=== PATIENT | female | born 1965 | race African-American/Black ===

== ENCOUNTER 2022-10-21 10:24 | Observation (INO) | payer OTHER, SELFPAY ==
[2022-10-21] VITALS (25 sets, daily range): BP systolic 115–157; BP diastolic 67–93; PULSE 79–89; RESP 12–20; TEMP 36.3–36.9; O2SAT 96–100; BMI 28.9
--- NOTE | ~2022-10-21 | CT_ITS ---
EXAMINATION: CT abdomen pelvis w con DATE: 10/21/2022 13:52 INDICATION: Nonlocalized abdominal pain TECHNIQUE: Computed tomography (CT) of the abdomen and pelvis was performed with 100 cc Omnipaque 350 intravenous contrast. The dose-length product was 1215.46 mGy-cm. Automated exposure control and iterative reconstruction technique were employed. COMPARISON: None. FINDINGS: Lung bases are unremarkable. Heart size normal. No significant pleural or pericardial effus ion. There is a gastric tube in expected position. There is abnormal thickening of the descending col on, sigmoid colon and rectum, Consistent with colitis. No obstruction. There are small locules of sof t tissue and gas in the anterior abdominal wall, consistent with subcutaneous injections. There is tr charity fluid surrounding the liver. The liver, spleen, pancreas, adrenal glands and right kidney are unremarkable. There is a 3 mm nonobs tructing left renal stone. Gallbladder is present. No free air. There is atherosclerosis of the aorta without aneurysm. No lymphadenopathy. Mild lumbar and lower thoracic spondylosis. Osteopenia. IMPRESSION: 1. Long segment of diffusely thickened colon including the descending colon, sigmoid colon and rectum , consistent with colitis, most likely infectious or inflammatory. Reviewed, dictated and finalized at location A. IMPRESSION: 1. Long segment of diffusely thickened colon including the descending colon, si gmoid colon and rectum, consistent with colitis, most likely infectious or infl ammatory.
--- NOTE | ~2022-10-21 | XR_ITS ---
MODIFIED ESOPHAGRAM HISTORY: CVA TECHNIQUE: Modified barium esophagram was performed by speech pathologist under radiologist fluorosco pic guidance. This was recorded on tape. The exam was reviewed on 10/22/2022 12:05 CDT. Fluoroscopy time is 0.8 minutes. 2 fluoroscopic images. FINDINGS: Lateral projection of the cervical spine demonstrates normal cervical alignment. Ventral osteophytes are present at C2-3, C4-5 and C5-6.. There is normal swallowing function without evidence for aspiration or penetration. There is residue in the vallecula and piriform sinus. IMPRESSION: 1: Normal swallowing function without laryngeal penetration or aspiration. 2: Please refer to speech pathologist report for additional detail. Reviewed, dictated and finalized at location A.
[2022-10-21 10:59] LABS: Basophils Percent Auto 0.2 % (0.2-1.2); Hematocrit 39.6 % (37.0-47.0); Hemoglobin 12.6 g/dL (12.0-15.0); Immature Granulocyte Absolute 0.18 K/mm3 (0.00-0.031); Immature Granulocyte Percent A 0.9 % (0-0.5); Lymphocytes Absolute Auto 1.55 K/mm3 (0.9-3.2); Mean Corpuscular HGB Conc 31.8 g/dl (32-36); Mean Corpuscular Hemoglobin 28.5 pg (26-34); Mean Corpuscular Volume 89.6 fl (80-100); Monocytes Absolute Auto 0.8 K/mm3 (0.1-0.6); Monocytes Percent Auto 4.1 % (2.6-8.5); Neutrophils Absolute Auto 16.8 K/mm3 (1.3-6.7); Neutrophils Percent Auto 86.8 % (45.5-73.1); Platelet Count Result 244 k/mm3 (150-375); Red Blood Count 4.42 M/mm3 (4.2-5.4); Red Cell Distribution Width 14.2 % (11.5-14.5); White Blood Count 19.3 K/mm3 (4.5-10.0)
[2022-10-21 11:09] LABS: Alanine Aminotransferase 36 U/L (6-35); Albumin Level 3.9 g/dL (3.5-5.1); Alkaline Phosphatase 82 U/L (38-126); Anion Gap 6 mmol/L (8-16); Aspartate Amino Transferase 27 U/L (14-36); Bilirubin,Total 0.5 mg/dL (0.2-1.3); Blood Urea Nitrogen 21 mg/dL (7-17); Calcium 10.7 mg/dL (8.4-10.2); Carbon Dioxide 34 mmol/L (22-30); Chloride 99 mmol/L (98-107); Estimated CRCL calculation 86 ml/min; Estimated Glomerular Filt Rate > 60; Glucose 163 mg/dL (65-110); Potassium 4.2 mmol/L (3.4-5.0); Sodium 139 mmol/L (137-145)
[2022-10-21 11:10] LABS: INR 1.1; Prothrombin Time 14.7 Seconds (11.1-14.7)
[2022-10-21 11:11] LABS: Partial Thromboplastin Time 33.1 SECONDS (22.3-36.8)
[2022-10-21 11:34] LABS: Appearance Urine Clear (Clear); Bacteria Urine None Seen /hpf; Bilirubin Urine Negative (Negative); Blood Urine Negative (Negative); Color Urine Dark Yellow (Yellow); Glucose Urine UA Negative (Negative); Ketones Urine Negative (Negative); Leukocyte Esterase Ur Trace LEU/UL (Negative); Nitrate Urine Negative (Negative); Protein Urine 3+ mg/dL (Negative); RBC Urine 0-2 /hpf (0-2); Squamous Epithelial Cell Urine Occasional /hpf (Few); Urobilinogen Urine 0.2 mg/dL (<2.0); WBC Urine 0-5 /hpf; pH Urine 5.5 (5.0-9.0)
[2022-10-21 11:41] LABS: Add Urine Microscopic? YES
--- NOTE | 2022-10-21 13:14 | ED.GENADULT ---
HPI - General Adult General Chief complaint: Unspecified Stated complaint: vag bld Time Seen by Provider: 10/21/22 10:27 History of Present Illness HPI narrative: Patient is a 56-year-old female that is chronically debilitated from a CVA may have a vaginal bleeding. [facility] staff change her diaper today and hours blood in it that was described by EMS and subsequently menstrual flow. Patient is not on blood thinner. No additional history provided. Related Data Home Medications Medication Instructions Recorded Confirmed acetaminophen 325 mg tablet 650 mg feeding tube Q4H PRN Pain 10/21/22 10/21/22 albuterol sulfate 90 mcg/actuation 2 puff inhalation Q4H PRN sob 10/21/22 10/21/22 aerosol inhaler amlodipine 10 mg tablet 10 mg feeding tube DAILY 10/21/22 10/21/22 aspirin 81 mg tablet,delayed 81 mg feeding tube DAILY 10/21/22 10/21/22 release (Adult Low Dose Aspirin) atorvastatin 80 mg tablet 80 mg feeding tube DAILY 10/21/22 10/21/22 bisacodyl 10 mg rectal suppository 10 mg RECTAL DAILY PRN Constipation 10/21/22 10/21/22 carvedilol 6.25 mg tablet 6.25 mg feeding tube BID 10/21/22 10/21/22 cholecalciferol (vitamin D3) 25 25 mcg feeding tube DAILY 10/21/22 10/21/22 mcg (1,000 unit) tablet clopidogrel 75 mg tablet 75 mg feeding tube DAILY 10/21/22 10/21/22 fluoxetine 20 mg capsule 20 mg feeding tube DAILY 10/21/22 10/21/22 furosemide 20 mg tablet 10 mg feeding tube DAILY 10/21/22 10/21/22 glucagon 1 mg solution for 1 mg subcut PRN PRN Hypoglycemia 10/21/22 10/21/22 injection (Glucagon Emergency Kit) heparin (porcine) 5,000 unit/mL 5,000 unit subcut Q8H 10/21/22 10/21/22 injection solution insulin glargine 100 unit/mL (3 16 unit subcut DAILY 10/21/22 10/21/22 mL) subcutaneous pen (Lantus Solostar U-100 Insulin) insulin lispro 100 unit/mL 8 unit subcut AC 10/21/22 10/21/22 subcutaneous half-unit pen (Humalog Edwin KwikPen (U-100)) lisinopril 40 mg tablet 40 mg feeding tube DAILY 10/21/22 10/21/22 magnesium citrate 300 ml feeding tube DAILY PRN 10/21/22 10/21/22 Constipation magnesium hydroxide 400 mg/5 mL 30 ml feeding tube HS PRN 10/21/22 10/21/22 oral suspension (Milk of Magnesia) Constipation memantine 10 mg tablet 10 mg feeding tube BID 10/21/22 10/21/22 methylphenidate HCl 10 mg tablet 10 mg feeding tube BID 10/21/22 10/21/22 ondansetron HCl 4 mg tablet 4 mg feeding tube Q6H PRN Nausea 10/21/22 10/21/22 And Vomiting pen needle,diabetic dual safty 30 10/21/22 10/21/22 gauge x 3/16 (BD AutoShield Duo Pen Needle) sennosides 8.6 mg-docusate sodium 1 tab-cap PO BID PRN Constipation 10/21/22 10/21/22 50 mg capsule sodium phosphates 19 gram-7 197 ml RECTAL PRN PRN Constipation 10/21/22 10/21/22 gram/118 mL enema (Fleet Enema) Allergies Allergy/AdvReac Type Severity Reaction Status Date / Time Latex, Natural Rubber Allergy Unknown Verified 10/21/22 10:41 Pork/Porcine Containing Allergy Unknown Verified 10/21/22 10:41 Products Review of Systems Review of Systems: ROS unobtainable: Yes unobtainable due to medical condition PMFSH Past Medical History Medical History (Updated 10/21/22 @ 17:50 by Kvng Mcgovern MD) CVA (cerebral vascular accident) Diabetes Gastrostomy tube in place Hypertension Exam Narrative: GENERAL: Chronically-appearing, well-nourished, and in no acute distress. HEAD: Normocephalic, atraumatic. ENT: Mucous membranes moist. NECK: Supple. CHEST: Clear to auscultation. No respiratory distress. HEART: Regular rate and rhythm. Normal peripheral pulses. ABDOMEN: Soft, nontender, nondistended, well-appearing G-tube site in left upper quadrant. : Normal external genitalia. Vaginal exam with moderate amount of pooling yellow discharge. Cervix normal appearance however does bleed with touch with the speculum. Cervix closed. No vaginal bleeding. EXTREMITIES: Chronic left-sided weakness. SKIN: Warm, dry, no rash. NEURO: Awake and alert, was not an
--- NOTE | 2022-10-21 18:17 | ED.GENADULT ---
HPI - General Adult General Chief complaint: Unspecified Stated complaint: vag bld Time Seen by Provider: 10/21/22 10:27 Related Data Home Medications Medication Instructions Recorded Confirmed acetaminophen 325 mg tablet 650 mg feeding tube Q4H PRN Pain 10/21/22 10/21/22 albuterol sulfate 90 mcg/actuation 2 puff inhalation Q4H PRN sob 10/21/22 10/21/22 aerosol inhaler amlodipine 10 mg tablet 10 mg feeding tube DAILY 10/21/22 10/21/22 aspirin 81 mg tablet,delayed 81 mg feeding tube DAILY 10/21/22 10/21/22 release (Adult Low Dose Aspirin) atorvastatin 80 mg tablet 80 mg feeding tube DAILY 10/21/22 10/21/22 bisacodyl 10 mg rectal suppository 10 mg RECTAL DAILY PRN Constipation 10/21/22 10/21/22 carvedilol 6.25 mg tablet 6.25 mg feeding tube BID 10/21/22 10/21/22 cholecalciferol (vitamin D3) 25 25 mcg feeding tube DAILY 10/21/22 10/21/22 mcg (1,000 unit) tablet clopidogrel 75 mg tablet 75 mg feeding tube DAILY 10/21/22 10/21/22 fluoxetine 20 mg capsule 20 mg feeding tube DAILY 10/21/22 10/21/22 furosemide 20 mg tablet 10 mg feeding tube DAILY 10/21/22 10/21/22 glucagon 1 mg solution for 1 mg subcut PRN PRN Hypoglycemia 10/21/22 10/21/22 injection (Glucagon Emergency Kit) heparin (porcine) 5,000 unit/mL 5,000 unit subcut Q8H 10/21/22 10/21/22 injection solution insulin glargine 100 unit/mL (3 16 unit subcut DAILY 10/21/22 10/21/22 mL) subcutaneous pen (Lantus Solostar U-100 Insulin) insulin lispro 100 unit/mL 8 unit subcut AC 10/21/22 10/21/22 subcutaneous half-unit pen (Humalog Edwin KwikPen (U-100)) lisinopril 40 mg tablet 40 mg feeding tube DAILY 10/21/22 10/21/22 magnesium citrate 300 ml feeding tube DAILY PRN 10/21/22 10/21/22 Constipation magnesium hydroxide 400 mg/5 mL 30 ml feeding tube HS PRN 10/21/22 10/21/22 oral suspension (Milk of Magnesia) Constipation memantine 10 mg tablet 10 mg feeding tube BID 10/21/22 10/21/22 methylphenidate HCl 10 mg tablet 10 mg feeding tube BID 10/21/22 10/21/22 ondansetron HCl 4 mg tablet 4 mg feeding tube Q6H PRN Nausea 10/21/22 10/21/22 And Vomiting pen needle,diabetic dual safty 30 10/21/22 10/21/22 gauge x 3/16 (BD AutoShield Duo Pen Needle) sennosides 8.6 mg-docusate sodium 1 tab-cap PO BID PRN Constipation 10/21/22 10/21/22 50 mg capsule sodium phosphates 19 gram-7 197 ml RECTAL PRN PRN Constipation 10/21/22 10/21/22 gram/118 mL enema (Fleet Enema) Allergies Allergy/AdvReac Type Severity Reaction Status Date / Time Latex, Natural Rubber Allergy Unknown Verified 10/21/22 10:41 Pork/Porcine Containing Allergy Unknown Verified 10/21/22 10:41 Products PMFSH Past Medical History Medical History (Updated 10/21/22 @ 17:50 by Kvng Mcgovern MD) CVA (cerebral vascular accident) Diabetes Gastrostomy tube in place Hypertension Social History Social History Smoking status: Unknown if ever smoked Spiritual care concerns: No Course Vital Signs Vital signs: Vital Signs Temperature 36.9 C 10/21/22 10:29 Pulse Rate 83 10/21/22 10:29 Respiratory Rate 18 10/21/22 10:29 Blood Pressure 155/81 H 10/21/22 10:29 Pulse Oximetry 99 10/21/22 10:29 Oxygen Delivery Room Air 10/21/22 10:29 Temperature 36.9 C 10/21/22 10:29 Pulse Rate 89 10/21/22 16:26 Respiratory Rate 18 10/21/22 16:26 Blood Pressure 115/75 10/21/22 16:26 Pulse Oximetry 98 10/21/22 16:26 Oxygen Delivery Room Air 10/21/22 17:54 Medical Decision Making Vital Signs Vital Signs: Vital Signs Temperature 36.9 C 10/21/22 10:29 Pulse Rate 83 10/21/22 10:29 Respiratory Rate 18 10/21/22 10:29 Blood Pressure 155/81 H 10/21/22 10:29 Pulse Oximetry 99 10/21/22 10:29 Oxygen Delivery Room Air 10/21/22 10:29 Temperature 36.9 C 10/21/22 10:29 Pulse Rate 89 10/21/22 16:26 Respiratory Rate 18 10/21/22 16:26 Blood Pressure 115/75 10/21/22 16:26 Pulse Oximetry 98 10/21/22 16:26 Oxygen
[2022-10-21] MEDS: metroNIDAZOLE 500 MG/ISO 100ML 500 MG/100 ML BAG 100 MG IVPB ×2 (18:25→21:58)
--- NOTE | 2022-10-21 23:51 | PM.IMHP ---
H&P: HPI History of Present Illness Date/Time: 10/21/22 23:51 Chief Complaint: bloody discharge Narrative: this is a 56-year-old female patient who resides at [facility] [place]. The patient has had a stroke around Easter time. She is nonverbal and flaccid her right upper and right lower extremity. The skilled nursing staff changed her diaper and found a bloody discharge. After reviewing her skilled nursing meds the patient apparently is on heparin every 8 hours. Her white count was noted to be 19.3. The patient is not able to answer any questions. I was not able to get a hold of anybody at the skilled nursing. However I did speak with her daughter who is the durable power workers compensation defense attorney for healthcare. Her blood sugar was noted to be 163 and calcium 10.7. A vaginal exam was performed. According to the ER note No evidence of vaginal bleeding on exam however with speculum was inserted there was some slight bleeding noted from the cervix due to irritation.? There was moderate discharge.? Trichomonas testing negative.? Patient felt to have bacterial vaginosis tachypneic leaving some blood in her diaper.? However due to elevated white blood cell count CT scan will be performed for anything else that may be going on within the abdomen pelvis. abdominal pelvis CT was read as a follow-upLong segment of diffusely thickened colon including the descending colon, sigmoid colon and rectum, consistent with colitis, most likely infectious or inflammatory. the patient was started on Rocephin and Flagyl. The patient is being admitted to observation status on the date of service of 10/21/2022. Review of Systems Review of Systems: All systems reviewed & are unremarkable except as noted in HPI and below Constitutional: Constitutional: Reports as per HPI and Reports no additional constitutional complaints Eyes: Eyes: Reports as per HPI and Reports no additional eye complaints ENT: Reports system reviewed and no additional complaints, except as documented and Reports Normal hearing present Cardiovascular: Cardiovascular: Reports no additional cardiovascular complaints Respiratory: Respiratory: Reports no additional respiratory complaints and Reports no additional respiratory complaints Gastrointestinal: Gastrointestinal: Reports as per HPI and Reports no additional gastrointestinal complaints Musculoskeletal: Musculoskeletal: Reports no additional musculoskeletal complaints Integumentary/Breasts: Skin/Breast: Reports system reviewed and no additional complaints, except as docu and Reports as per HPI Neurologic: Reports system reviewed and no additional complaints, except as documented, Reports as per HPI and Reports Normal hearing present Psychiatric: Psychiatric: Reports no additional psychiatric complaints and Reports as per HPI Endocrine: Endocrine: Reports no additional endocrine complaints Hematologic/Lymphatic: Hematologic/Lymphatic: Reports no additional hematologic/lymphatic complaints Allergic/Immunologic: Allergic/Immunologic: Reports no additional allergic/immunologic complaints [facility] Past Medical History Medical History (Updated 10/22/22 @ 00:04 by Maria Antonia Young NP) CVA (cerebral vascular accident) Depression with anxiety Diabetes Gastrostomy tube in place Hypertension Surgical History Surgical History (Updated 10/22/22 @ 00:04 by Maria Antonia Young NP) H/O section Family History Family History (Updated 10/22/22 @ 00:04 by Maria Antonia Young NP) Other Diabetes mellitus Hypertension Social History Social History (Updated 10/22/22 @ 00:05 by Maria Antonia Young NP) Social History: the patient is single and has 7 children. She is currently residing at [facility]. Her daughter Connie senior is her durable power workers compensation defense attorney for healthcare. Code status full code Smoking status: Unknown if ever smoked Spiritual care concerns: No Meds Home Medications and Allergies
[2022-10-22 01:54] LABS: Hemoglobin 10.4 g/dL (12.0-15.0)
[2022-10-22] MEDS: SODIUM CHLORIDE 0.9% IV 1,000 ML 100 ML IV CONT (02:45)
[2022-10-22 05:22] VITALS: BP 139/72; PULSE 88; RESP 14; TEMP 36.2; O2SAT 99
[2022-10-22] MEDS: metroNIDAZOLE 500 MG/ISO 100ML 500 MG/100 ML BAG 100 MG IVPB ×3 (05:48→21:16)
[2022-10-22 06:59] LABS: Basophils Percent Auto 0.2 % (0.2-1.2); Eosinophils Percent Auto 0.1 % (0-4.4); Hematocrit 32.5 % (37.0-47.0); Immature Granulocyte Absolute 0.19 K/mm3 (0.00-0.031); Immature Granulocyte Percent A 1.1 % (0-0.5); Lymphocytes Percent Auto 12.6 % (18.3-44.2); Mean Corpuscular HGB Conc 30.8 g/dl (32-36); Mean Corpuscular Hemoglobin 27.9 pg (26-34); Mean Corpuscular Volume 90.5 fl (80-100); Mean Platelet Volume 11.1 fl (7.4-10.4); Monocytes Percent Auto 5.7 % (2.6-8.5); Neutrophils Absolute Auto 13.3 K/mm3 (1.3-6.7); Neutrophils Percent Auto 80.3 % (45.5-73.1); Platelet Count Result 188 k/mm3 (150-375); Red Blood Count 3.59 M/mm3 (4.2-5.4); Red Cell Distribution Width 14.1 % (11.5-14.5); White Blood Count 16.6 K/mm3 (4.5-10.0)
[2022-10-22 07:11] LABS: Alanine Aminotransferase 24 U/L (6-35); Albumin Level 3.3 g/dL (3.5-5.1); Alkaline Phosphatase 78 U/L (38-126); Anion Gap 1 mmol/L (8-16); Aspartate Amino Transferase 20 U/L (14-36); Bilirubin,Total 0.5 mg/dL (0.2-1.3); Blood Urea Nitrogen 18 mg/dL (7-17); Calcium 9.8 mg/dL (8.4-10.2); Carbon Dioxide 34 mmol/L (22-30); Chloride 102 mmol/L (98-107); Estimated CRCL calculation 93 ml/min; Estimated Glomerular Filt Rate > 60; Glucose 132 mg/dL (65-110); Lactate Dehydrogenase 129 U/L (120-246); Potassium 3.4 mmol/L (3.4-5.0); Sodium 137 mmol/L (137-145)
[2022-10-22 07:39] LABS: Thyroid Stimulating Hormone Reflex 0.431 uIU/mL (0.465-4.68)
[2022-10-22 08:20] LABS: Glucose Point of Care 150 mg/dl (65-105)
[2022-10-22 08:20] LABS: Free T4 Free Thyroxine Reflex 1.53 ng/dL (0.78-2.19)
[2022-10-22] MEDS: PANTOPRAZOLE SODIUM IV 40 MG VIAL IV PUSH ×2 (08:37→20:46)
[2022-10-22] MEDS: amLODIPine BESYLATE 5 MG TABLET 10 MG FEED TUBE (08:40)
[2022-10-22] MEDS: methylPHENIDATE HCL (*CRX) 10 MG TABLET FEED TUBE ×2 (08:40→16:49)
[2022-10-22] MEDS: FLUoxetine HCL 20 MG CAPSULE FEED TUBE (08:40)
[2022-10-22] MEDS: CHOLECALCIFEROL 1,000 UNITS TABLET 1000 UNITS FEED TUBE (08:40)
[2022-10-22] MEDS: ATORVASTATIN 40 MG TABLET 80 MG FEED TUBE (08:40)
[2022-10-22] MEDS: MEMANTINE 10 MG TABLET FEED TUBE ×2 (08:40→20:46)
[2022-10-22] MEDS: lisinopriL 20 MG TABLET 40 MG FEED TUBE (08:41)
[2022-10-22] MEDS: FUROSEMIDE 10 MG TABLET FEED TUBE (08:41)
[2022-10-22] MEDS: carvediloL 6.25 MG TABLET FEED TUBE ×2 (08:41→20:51)
[2022-10-22] MEDS: CLOPIDOGREL BISULFATE 75 MG TABLET FEED TUBE (08:41)
[2022-10-22 09:50] LABS: Total Triiodothyronine (T3) 0.91 NG/ML (0.97-1.69)
[2022-10-22 11:20] LABS: Hemoglobin A1C 6.6 % (<5.7)
[2022-10-22 11:51] LABS: Glucose Point of Care 160 mg/dl (65-105)
--- NOTE | 2022-10-22 12:22 | PM.IMPN ---
Progress Note: A&P Assessment and Plan (1) Colitis: Code(s): K52.9 - Noninfective gastroenteritis and colitis, unspecified Status: Acute Assessment and Plan: Patient brought in from [place] for blood in her diaper. CT scan showing long segment of diffusely thickened colon including the descending colon, sigmoid colon and rectum consistent with colitis. Most likely infectious or inflammatory. WBC 19K. No diarrhea reported. She was started on Rocephin and Flagyl. GI consulted. Stool guaiac ordered. Stools studies if she develops diarrhea. The patient appears to be on heparin at the intermediate. Heparin has been placed on hold. Continue IV abx. Follow WBC (2) Bacterial vaginosis: Code(s): N76.0 - Acute vaginitis; B96.89 - Other specified bacterial agents as the cause of diseases classified elsewhere Status: Acute Assessment and Plan: Patient with blood in her diaper. UA was negative for blood. CT scan does show colitis. A vaginal exam was performed in the ED showing no evidence of vaginal bleeding but some slight bleeding noted from the cervix due to irritation.? There was moderate discharge.? Trichomonas testing negative.?[place] patient has bacterial vaginosis. UPT was negative. GC/Chlym pending. Continue Flagyl (3) Dysphagia: Code(s): R13.10 - Dysphagia, unspecified Status: Acute Assessment and Plan: Patient with dysphagia after her CVA. Dtr stated to other providers that the patient has been taking oral medications crushed in soft foods. RN states love is on a pureed diet at the intermediate. According to the daughter, the patient is supposed to have her G-tube removed. MBS study here showed patient can safely be started on oral feedings. Therapist felt resuming pureed diet would be fine. Resume pureed diet. Aspiration precautions (4) Diabetes: Code(s): E11.9 - Type 2 diabetes mellitus without complications Status: Acute Assessment and Plan: A1c 6.6. The patient's blood glucose was reviewed on 10/22 Glucose remains well controlled. Continue AccuCheks covering with sliding scale. Hypoglycemia protocol available as needed. Continue to monitor. Resume Lantus since diet resumed (5) Hypertension: Code(s): I10 - Essential (primary) hypertension Status: Acute Assessment and Plan: Patient's blood pressure was reviewed on 10/22 Blood pressure remains well controlled. Will continue to monitor (6) CVA (cerebral vascular accident): Code(s): I63.9 - Cerebral infarction, unspecified Status: Acute Assessment and Plan: The patient had a CVA at Easter time. She has residual aphasia, dysphagia and right sided paralysis. Continue Plavix and aspirin. Continue atorvastatin (7) Depression with anxiety: Code(s): F41.8 - Other specified anxiety disorders Status: Acute Assessment and Plan: Mood stable. Continue with Prozac, Ritalin and Namenda Plan DVT prophylaxis - SCDs Code status - Full Subjective Date/time seen: 10/22/22 12:22 Interval history: 56yo female with hx of CVA, dysphagia and aphasia here after being found with blood in her diaper. Patient is alert but aphasic and unable to provide hisotry. Review of Systems Review of Systems: ROS unobtainable: Yes unobtainable due to medical condition Exam Narrative: AF 97.2 139/72 88 14 99% ra Gen - NARD Chest - clear to quiet respirations. nml RR CV - RRR S1/S2 Abd - Soft, ND, no apparent pain. GTube secured. Ext - No pedal edema Neuro - Alert, nonverbal. Right flaccid. Psych - Nml mood and affect Skin - Warm and dry Objective Data Vital Signs Vital Signs: Vital Signs - 24 hr 10/21/22 12:27 10/21/22 12:31 10/21/22 12:32 Temperature Pulse Rate 82 82 85 Respiratory Rate 18 18 16 Blood Pressure 133/79 124/93 H Pulse Oximetry 100 100 100 Oxygen Delivery 10/21/22 12:45 10/21/22 13:16 06
[2022-10-22 12:33] LABS: Hematocrit 32.2 % (37.0-47.0); Hemoglobin 10.1 g/dL (12.0-15.0)
--- NOTE | 2022-10-22 12:44 | PCSTNOTE ---
Modified barium swallow study (MBSS) completed. Trials of thin liquid, moderately thick liquid, and pureed consistency barium contrast were given. There was trace residue in the pyriform sinuses and valleculae, but no penetration or aspiration. Swallowing onset was timely and swallowing function efficient. Recommendations: Resume previous diet texture (pureed) with thin liquids. Swallowing precautions placed in chart. Pills may be given by spoon in applesauce or other pureed food. No further speech therapy is recommended. Thank you for the referral of this patient.
[2022-10-22 14:00] VITALS: BP 139/66; PULSE 88; RESP 14; TEMP 35.8; O2SAT 100
[2022-10-22 16:33] LABS: Glucose Point of Care 205 mg/dl (65-105)
[2022-10-22] MEDS: INSULIN ASPART (*BKC) 100 UNITS/ML SUB-Q (16:48)
[2022-10-22 18:16] LABS: Hematocrit 30.2 % (37.0-47.0); Hemoglobin 9.6 g/dL (12.0-15.0)
--- NOTE | 2022-10-22 18:44 | WPDGICN ---
Assessment and Plan Assessment and plan (1) Colitis: Code(s): K52.9 - Noninfective gastroenteritis and colitis, unspecified Status: Acute Assessment and Plan: could be infectious vs ischemic on abx continue to monitor repeat cbc and also get lactic acid (2) Rectal bleeding: Code(s): K62.5 - Hemorrhage of anus and rectum Status: Acute Assessment and Plan: probably from colitis defer colonoscopy in setting of active colitis medical treatment for now, probably in few more weeks after resolution of colitis (3) Leukocytosis: Code(s): D72.829 - Elevated white blood cell count, unspecified Status: Acute Assessment and Plan: monitor (4) CVA (cerebral vascular accident): Code(s): I63.9 - Cerebral infarction, unspecified Status: Acute Assessment and Plan: aphasia and sequela (5) Diabetes: Code(s): E11.9 - Type 2 diabetes mellitus without complications Status: Acute (6) Hypertension: Code(s): I10 - Essential (primary) hypertension Status: Acute GI Consult Note Consult date/time: 10/22/22 18:44 Reason for consult: colitis HPI: Eda Lovell is a 56 year old female with h/o HTN, CVA about 2 months ago then she went to local rehab. She is nonverbal and flaccid her right upper and right lower extremity.? She was brought here after [facility] staff changed her diaper and found? bloody discharge.?Her white count was noted to be 19.3. CT scan showed long segment of diffusely thickened colon including the descending colon, sigmoid colon and rectum, consistent with colitis,?Started on antibiotics. History is obtained from records and daughter who is at bedside, she can not tell me if she ever had colonoscopy. Review of Systems Review of Systems: ROS unobtainable: Yes unobtainable due to mental status PMFSH Past Medical History Medical History (Updated 10/22/22 @ 18:47 by J Carlos Medina MD) CVA (cerebral vascular accident) Depression with anxiety Diabetes Dysphagia Gastrostomy tube in place Hypertension Leukocytosis Rectal bleeding Surgical History Surgical History (Updated 10/22/22 @ 00:04 by Maria Antonia Young NP) H/O section Family History Family History (Updated 10/22/22 @ 00:04 by Maria Antonia Young NP) Other Diabetes mellitus Hypertension Social History Social History (Updated 10/22/22 @ 00:05 by Maria Antonia Young NP) Social History: the patient is single and has 7 children. She is currently residing at [facility]. Her daughter Connie senior is her durable power sports attorney for healthcare. Code status full code Smoking status: Unknown if ever smoked Spiritual care concerns: No Meds Home Medications and Allergies Home Medications Medication Instructions Recorded Confirmed Type acetaminophen 325 mg tablet 650 mg feeding tube Q4H PRN Pain 10/21/22 10/21/22 History albuterol sulfate 90 mcg/actuation 2 puff inhalation Q4H PRN sob 10/21/22 10/21/22 History aerosol inhaler amlodipine 10 mg tablet 10 mg feeding tube DAILY 10/21/22 10/21/22 History aspirin 81 mg tablet,delayed 81 mg feeding tube DAILY 10/21/22 10/21/22 History release (Adult Low Dose Aspirin) atorvastatin 80 mg tablet 80 mg feeding tube DAILY 10/21/22 10/21/22 History bisacodyl 10 mg rectal suppository 10 mg RECTAL DAILY PRN Constipation 10/21/22 10/21/22 History carvedilol 6.25 mg tablet 6.25 mg feeding tube BID 10/21/22 10/21/22 History cholecalciferol (vitamin D3) 25 25 mcg feeding tube DAILY 10/21/22 10/21/22 History mcg (1,000 unit) tablet clopidogrel 75 mg tablet 75 mg feeding tube DAILY 10/21/22 10/21/22 History fluoxetine 20 mg capsule 20 mg feeding tube DAILY 10/21/22 10/21/22 History furosemide 20 mg tablet 10 mg feeding tube DAILY 10/21/22 10/21/22 History glucagon 1 mg solution for 1 mg subcut PRN PRN Hypoglycemia 10/21/22 10/21/22 History injection (Glucagon E
[2022-10-22 20:51] VITALS: PULSE 74
[2022-10-22 21:02] LABS: Glucose Point of Care 172 mg/dl (65-105)
[2022-10-22 21:12] VITALS: BP 112/58; PULSE 79; RESP 14; TEMP 36.3; O2SAT 100
[2022-10-22] MEDS: ACETAMINOPHEN 325 MG TABLET 650 MG PO (23:27)
[2022-10-23] MEDS: metroNIDAZOLE 500 MG/ISO 100ML 500 MG/100 ML BAG 100 MG IVPB ×3 (05:12→23:00)
[2022-10-23 06:00] VITALS: BP 138/71; PULSE 78; RESP 12; TEMP 36.3; O2SAT 99
[2022-10-23 06:07] LABS: Basophils Absolute Auto 0.1 K/mm3 (0.0-0.1); Basophils Percent Auto 0.4 % (0.2-1.2); Eosinophils Absolute Auto 0.1 K/mm3 (0-0.3); Eosinophils Percent Auto 0.7 % (0-4.4); Hematocrit 30.5 % (37.0-47.0); Hemoglobin 9.5 g/dL (12.0-15.0); Immature Granulocyte Percent A 0.7 % (0-0.5); Lymphocytes Absolute Auto 3.25 K/mm3 (0.9-3.2); Lymphocytes Percent Auto 23.5 % (18.3-44.2); Mean Corpuscular HGB Conc 31.1 g/dl (32-36); Mean Platelet Volume 10.7 fl (7.4-10.4); Monocytes Absolute Auto 0.8 K/mm3 (0.1-0.6); Monocytes Percent Auto 5.6 % (2.6-8.5); Neutrophils Absolute Auto 9.6 K/mm3 (1.3-6.7); Neutrophils Percent Auto 69.1 % (45.5-73.1); Platelet Count Result 178 k/mm3 (150-375); Red Blood Count 3.39 M/mm3 (4.2-5.4); Red Cell Distribution Width 13.8 % (11.5-14.5); White Blood Count 13.8 K/mm3 (4.5-10.0)
[2022-10-23 06:16] LABS: Lactic Acid Reflex 0.7 mmol/L (0.7-2.0)
[2022-10-23 06:18] LABS: Anion Gap 0 mmol/L (8-16); Blood Urea Nitrogen 14 mg/dL (7-17); Carbon Dioxide 33 mmol/L (22-30); Chloride 104 mmol/L (98-107); Estimated CRCL calculation 93 ml/min; Estimated Glomerular Filt Rate > 60; Glucose 146 mg/dL (65-110); Potassium 3.2 mmol/L (3.4-5.0); Sodium 137 mmol/L (137-145)
[2022-10-23 07:57] LABS: Glucose Point of Care 164 mg/dl (65-105)
[2022-10-23] MEDS: MEMANTINE 10 MG TABLET PO ×2 (08:00→22:51)
[2022-10-23] MEDS: amLODIPine BESYLATE 5 MG TABLET 10 MG PO (08:00)
[2022-10-23 08:01] VITALS: PULSE 88
[2022-10-23] MEDS: carvediloL 6.25 MG TABLET PO ×2 (08:01→22:52)
[2022-10-23] MEDS: CHOLECALCIFEROL 1,000 UNITS TABLET 1000 UNITS PO (08:01)
[2022-10-23] MEDS: PANTOPRAZOLE SODIUM IV 40 MG VIAL IV PUSH ×2 (08:01→22:51)
[2022-10-23] MEDS: INSULIN GLARGINE (*BKC) 100 UNITS/ML 16 UNITS SUB-Q (08:01)
[2022-10-23] MEDS: CLOPIDOGREL BISULFATE 75 MG TABLET PO (08:01)
[2022-10-23] MEDS: POTASSIUM CHLORIDE 20 MEQ ER TABLET 40 MEQ PO (08:02)
[2022-10-23] MEDS: FUROSEMIDE 10 MG TABLET PO (08:02)
[2022-10-23] MEDS: lisinopriL 20 MG TABLET 40 MG PO (08:02)
[2022-10-23] MEDS: methylPHENIDATE HCL (*CRX) 10 MG TABLET PO ×2 (08:02→16:45)
[2022-10-23] MEDS: ATORVASTATIN 40 MG TABLET 80 MG PO (08:02)
[2022-10-23] MEDS: FLUoxetine HCL 20 MG CAPSULE PO (08:04)
[2022-10-23 11:32] LABS: Glucose Point of Care 198 mg/dl (65-105)
[2022-10-23 14:00] VITALS: BP 132/75; PULSE 89; RESP 18; TEMP 37.1; O2SAT 98
--- NOTE | 2022-10-23 15:44 | WPDGIPROGNO ---
Progress Note: A&P Assessment and Plan (1) Colitis: Code(s): K52.9 - Noninfective gastroenteritis and colitis, unspecified Status: Acute Assessment and Plan: abdominal exam benign, lactic acid normal on abx (2) Rectal bleeding: Code(s): K62.5 - Hemorrhage of anus and rectum Status: Acute Assessment and Plan: h/h stable (3) Leukocytosis: Code(s): D72.829 - Elevated white blood cell count, unspecified Status: Acute Assessment and Plan: trending down (4) CVA (cerebral vascular accident): Code(s): I63.9 - Cerebral infarction, unspecified Status: Acute (5) Aphasia as late effect of cerebrovascular accident: Code(s): I69.320 - Aphasia following cerebral infarction Status: Acute Subjective Date/time seen: 10/23/22 15:44 Interval history: she is lying in bed, difficult to get much from her but she seems comfortable Review of Systems Review of Systems: All systems reviewed & are unremarkable except as noted in HPI and below Exam Const: General: comfortable HENMT: Face/Nose/Sinus: Normal nares present Eyes: Sclera: sclerae normal Neck: Neck: supple Resp: Effort & Inspection: normal respiratory effort Cardio: Rate: regular rate GI: Inspection: distended GI Palp: Yes Soft to palpation and No Guarding due to palpation present (GI) Auscultation: normal bowel sounds Skin: General skin exam: normal color Neuro: Other: aphasia, right hemiparesis Extrem: General: normal to inspection Psych: Other: unable to assess Objective Data Vital Signs Vital Signs: Vital Signs - 24 hr 10/22/22 20:51 10/22/22 21:12 10/23/22 06:00 Temperature 97.3 F L 97.4 F L Pulse Rate 74 79 78 Respiratory Rate 14 12 Blood Pressure 112/58 L 138/71 Pulse Oximetry 100 99 10/23/22 08:01 10/23/22 14:00 Temperature 98.7 F Pulse Rate 88 89 Respiratory Rate 18 Blood Pressure 132/75 Pulse Oximetry 98 Intake/Output Intake/Output: Intake & Output 10/20/22 10/21/22 10/22/22 10/23/22 23:59 23:59 23:59 23:59 Intake Total 150 1250 790 Output Total 0 Balance 150 1250 790 Meds/Results Medications: Active Medications Generic Name Dose Route Start Last Admin Trade Name Freq PRN Reason Stop Dose Admin Acetaminophen 650 mg 10/22/22 21:41 10/22/22 23:27 Acetaminophen 325 Mg Tablet PO 650 mg Q4H PRN Administration Pain Albuterol 2 puff 10/21/22 23:57 Albuterol Sulfate (*Sp) Aerosol 1 Puff INHALATION Q4H PRN sob Amlodipine Besylate 10 mg 10/23/22 09:00 10/23/22 08:00 Amlodipine Besylate 5 Mg Tablet PO 10 mg DAILY LUCIANA Administration Atorvastatin Calcium 80 mg 10/23/22 09:00 10/23/22 08:02 Atorvastatin 40 Mg Tablet PO 80 mg DAILY LUCIANA Administration Bisacodyl 10 mg 10/21/22 23:57 Bisacodyl 10 Mg Suppository RECTAL DAILY PRN Constipation Carvedilol 6.25 mg 10/23/22 09:00 10/23/22 08:01 Carvedilol 6.25 Mg Tablet PO 6.25 mg Q12HR LUCIANA Administration Clopidogrel Bisulfate 75 mg 10/23/22 09:00 10/23/22 08:01 Clopidogrel Bisulfate 75 Mg Tablet PO 75 mg DAILY LUCIANA Administration Dextrose 12.5 gm 10/21/22 23:59 Dextrose 50% 25 Gm/50 Ml Syringe IV PUSH PRN PRN Hypoglycemia Protocol Fluoxetine HCl 20 mg 10/23/22 09:00 10/23/22 08:04 Fluoxetine Hcl 20 Mg Capsule PO 20 mg DAILY LUCIANA Administration Furosemide 10 mg 10/23/22 09:00 10/23/22 08:02 Furosemide 10 Mg Tablet PO 10 mg DAILY LUCIANA Administration Glucagon 1 mg 10/21/22 23:59 Glucagon For Inj 1 Mg Vial IM PRN PRN Hypoglycemia Protocol Glucose 15 gm 10/21/22 23:59 Glucose Oral Gel 15 Gm Of Glucse In 37.5 Gm Tube PO PRN PRN Hypoglycemia Protocol Ceftriaxone Sodium 1 gm in 50 mls @ 100 mls/hr 10/22/22 09:00 10/23/22 09:52 Rocephin 1 Gm/Ns 50 Ml IVPB Infused Q24H LUCIANA Infusi
[2022-10-23 16:37] LABS: Glucose Point of Care 186 mg/dl (65-105)
--- NOTE | 2022-10-23 18:32 | PM.IMPN ---
Progress Note: A&P Assessment and Plan (1) Colitis: Code(s): K52.9 - Noninfective gastroenteritis and colitis, unspecified Status: Acute Assessment and Plan: Patient brought in from [place] for blood in her diaper. CT scan showing long segment of diffusely thickened colon including the descending colon, sigmoid colon and rectum consistent with colitis. Most likely infectious or inflammatory. WBC was 19K. No diarrhea reported. She was started on Rocephin and Flagyl. GI consulted. Stool guaiac ordered but no BMs listed. The patient was on heparin at the senior living. Heparin was held. WBC better at 14K. Continue IV abx. Home tomorrow if continues to improve. (2) Bacterial vaginosis: Code(s): N76.0 - Acute vaginitis; B96.89 - Other specified bacterial agents as the cause of diseases classified elsewhere Status: Acute Assessment and Plan: Patient with blood in her diaper. UA was negative for blood. CT scan does show colitis. A vaginal exam was performed in the ED showing no evidence of vaginal bleeding but some slight bleeding noted from the cervix due to irritation.? There was moderate discharge.? Trichomonas testing negative.?UPT was negative. GC/Chlym pending. [place] patient has bacterial vaginosis. Continue Flagyl (3) Anemia: Code(s): D64.9 - Anemia, unspecified Status: Acute Assessment and Plan: Hgb was 12.6 on admission but dropped to 10 yesterday and now 9.5. No active bleeding noted. IV fluids stopped today. Probably related to hemodilution. Check iron studies and B12. Stool guaiac ordered. Follow (4) Rectal bleeding: Code(s): K62.5 - Hemorrhage of anus and rectum Status: Acute Assessment and Plan: Blood in the diaper either from vaginal source or more likely rectal bleeding. As above. (5) Dysphagia: Code(s): R13.10 - Dysphagia, unspecified Status: Acute Assessment and Plan: Patient with dysphagia after her CVA. Dtr stated to other providers that the patient has been taking oral medications crushed in soft foods. RN called [place] and states patient is on a pureed diet at the senior living. According to the daughter, the patient is supposed to have her G-tube removed. MBS study here showed patient can safely be started on oral feedings. Therapist felt resuming pureed diet would be fine. Pureed diet resumed. Aspiration precautions (6) Diabetes: Code(s): E11.9 - Type 2 diabetes mellitus without complications Status: Acute Assessment and Plan: A1c 6.6. The patient's blood glucose was reviewed on 10/23 Glucose remains well controlled. Continue AccuCheks covering with sliding scale. Hypoglycemia protocol available as needed. Continue to monitor. (7) Hypertension: Code(s): I10 - Essential (primary) hypertension Status: Acute Assessment and Plan: Patient's blood pressure was reviewed on 10/23 Blood pressure remains well controlled. Will continue to monitor (8) CVA (cerebral vascular accident): Code(s): I63.9 - Cerebral infarction, unspecified Status: Acute Assessment and Plan: The patient had a CV[place] at [place] [facility]. She has residual aphasia, dysphagia and right sided paralysis. Continue Plavix and aspirin. Continue atorvastatin (9) Depression with anxiety: Code(s): F41.8 - Other specified anxiety disorders Status: Acute Assessment and Plan: Mood stable. Continue with Prozac, Ritalin and Namenda Plan DVT prophylaxis - SCDs Code status - Full Subjective Date/time seen: 10/23/22 18:32 Interval history: 56yo female with hx of CVA, dysphagia and aphasia here after being found with blood in her diaper. Patient is alert but aphasic and unable to provide history. Review of Systems Review of Systems: ROS unobtainable: Yes unobtainable due to medical condition Exam Narrative: AF 98.7 132/75 89 18 98% ra Gen - NARD Chest -
[2022-10-23] MEDS: ACETAMINOPHEN 325 MG TABLET 650 MG PO (19:27)
[2022-10-23 20:56] VITALS: BP 134/75; PULSE 87; RESP 12; TEMP 36.2; O2SAT 99
[2022-10-23 21:23] LABS: Glucose Point of Care 204 mg/dl (65-105)
[2022-10-23] MEDS: INSULIN ASPART (*BKC) 100 UNITS/ML SUB-Q (22:45)
[2022-10-23 22:52] VITALS: PULSE 80
[2022-10-24 05:13] VITALS: BP 158/73; PULSE 72; RESP 16; TEMP 36.1; O2SAT 100
[2022-10-24] MEDS: metroNIDAZOLE 500 MG/ISO 100ML 500 MG/100 ML BAG 100 MG IVPB ×2 (05:16→15:38)
[2022-10-24 06:35] LABS: Basophils Percent Auto 0.4 % (0.2-1.2); Eosinophils Absolute Auto 0.2 K/mm3 (0-0.3); Eosinophils Percent Auto 1.4 % (0-4.4); Hemoglobin 10.8 g/dL (12.0-15.0); Immature Granulocyte Absolute 0.03 K/mm3 (0.00-0.031); Immature Granulocyte Percent A 0.3 % (0-0.5); Immature Platelet Fraction Pct 6.8 % (0.9-11.2); Lymphocytes Absolute Auto 2.64 K/mm3 (0.9-3.2); Lymphocytes Percent Auto 23.8 % (18.3-44.2); Mean Corpuscular HGB Conc 31.8 g/dl (32-36); Mean Corpuscular Hemoglobin 28.6 pg (26-34); Mean Corpuscular Volume 89.9 fl (80-100); Mean Platelet Volume 11.7 fl (7.4-10.4); Monocytes Absolute Auto 0.7 K/mm3 (0.1-0.6); Neutrophils Absolute Auto 7.6 K/mm3 (1.3-6.7); Neutrophils Percent Auto 68.1 % (45.5-73.1); Platelet Count Result 209 k/mm3 (150-375); Red Blood Count 3.78 M/mm3 (4.2-5.4); Red Cell Distribution Width 13.6 % (11.5-14.5); White Blood Count 11.1 K/mm3 (4.5-10.0)
[2022-10-24 07:05] LABS: Iron 51 ug/dL (37-170)
[2022-10-24 07:06] LABS: Anion Gap 2 mmol/L (8-16); Blood Urea Nitrogen 10 mg/dL (7-17); Calcium 9.2 mg/dL (8.4-10.2); Carbon Dioxide 30 mmol/L (22-30); Chloride 105 mmol/L (98-107); Estimated CRCL calculation 110 ml/min; Estimated Glomerular Filt Rate > 60; Glucose 129 mg/dL (65-110); Phosphorus 2.5 mg/dL (2.5-4.5); Potassium 3.9 mmol/L (3.4-5.0); Sodium 137 mmol/L (137-145)
[2022-10-24 07:08] LABS: Percent Iron Saturation 32 % (20-50)
[2022-10-24 07:35] LABS: Glucose Point of Care 174 mg/dl (65-105)
[2022-10-24 07:56] LABS: Folic Acid 19.4 ng/mL (2.76->20)
[2022-10-24] MEDS: INSULIN GLARGINE (*BKC) 100 UNITS/ML 16 UNITS SUB-Q (08:51)
[2022-10-24 08:52] VITALS: PULSE 80
[2022-10-24] MEDS: MEMANTINE 10 MG TABLET PO (08:52)
[2022-10-24] MEDS: CLOPIDOGREL BISULFATE 75 MG TABLET PO (08:52)
[2022-10-24] MEDS: FLUoxetine HCL 20 MG CAPSULE PO (08:52)
[2022-10-24] MEDS: carvediloL 6.25 MG TABLET PO (08:52)
[2022-10-24] MEDS: ATORVASTATIN 40 MG TABLET 80 MG PO (08:52)
[2022-10-24] MEDS: methylPHENIDATE HCL (*CRX) 10 MG TABLET PO ×2 (08:52→16:32)
[2022-10-24] MEDS: CHOLECALCIFEROL 1,000 UNITS TABLET 1000 UNITS PO (08:53)
[2022-10-24] MEDS: amLODIPine BESYLATE 5 MG TABLET 10 MG PO (08:53)
[2022-10-24] MEDS: lisinopriL 20 MG TABLET 40 MG PO (08:53)
[2022-10-24] MEDS: PANTOPRAZOLE SODIUM IV 40 MG VIAL IV PUSH (08:53)
[2022-10-24] MEDS: FUROSEMIDE 10 MG TABLET PO (08:53)
--- NOTE | 2022-10-24 09:48 | PM.DS ---
DS: Admitting Diagnosis Discharge Date 10/24/22 Admitting Diagnosis Bloody discharge DS: Discharge Diagnosis Discharge Diagnosis (1) Colitis: Code(s): K52.9 - Noninfective gastroenteritis and colitis, unspecified Status: Acute (2) Bacterial vaginosis: Code(s): N76.0 - Acute vaginitis; B96.89 - Other specified bacterial agents as the cause of diseases classified elsewhere Status: Acute (3) Anemia: Code(s): D64.9 - Anemia, unspecified Status: Acute (4) Rectal bleeding: Code(s): K62.5 - Hemorrhage of anus and rectum Status: Acute (5) Dysphagia: Code(s): R13.10 - Dysphagia, unspecified Status: Acute (6) Diabetes: Code(s): E11.9 - Type 2 diabetes mellitus without complications Status: Acute (7) Hypertension: Code(s): I10 - Essential (primary) hypertension Status: Acute (8) CVA (cerebral vascular accident): Code(s): I63.9 - Cerebral infarction, unspecified Status: Acute (9) Depression with anxiety: Code(s): F41.8 - Other specified anxiety disorders Status: Acute DS: Summary Hospital Course Reason for hospitalization: 56yo female with hx of CVA, dysphagia and aphasia here after being found with blood in her diaper. Please see H&P for details. Hospital Course: Patient brought in from [place] for blood in her diaper. CT of the Abd/pelvis showing long segment of diffusely thickened colon including the descending colon, sigmoid colon and rectum consistent with colitis. Most likely infectious or inflammatory. WBC was 19K. No diarrhea reported. She was started on Rocephin and Flagyl. GI was consulted. Stool guaiac ordered but no BMs listed. [facility] and this was [facility]. WBC better at 11K. UA was negative for blood. A vaginal exam was performed in the ED showing no evidence of vaginal bleeding but some slight bleeding noted from the cervix due to irritation.? There was moderate discharge.? Trichomonas testing negative.?UPT was negative. GC/Chlym pending. [place] patient had bacterial vaginosis treated with Flagyl. Hgb was 12.6 on admission but dropped to 9.5. No active bleeding noted. Possibly hemodilution so IV fluids stopped. Iron studies consistent with anemia of chronic disease. B12 and Folate normal. Patient with dysphagia after her CVA. By report, patient has been taking oral medications crushed in soft foods. RN called [facility] and states [facility]. MBS study here showed patient can safely be started on oral feedings. Speech therapist felt okay to resume pureed diet. A1c 6.6. The patient's blood glucose was monitored with AccuCheks covering with sliding scale.? Hypoglycemia protocol was available as needed.? The patient had a CVA at [facility]. She has residual aphasia, dysphagia and right sided paralysis. We continued Lipitor, Plavix and aspirin. She overall did well. No recurrent bleediing. She was able to be discharged back to skilled facility on 10/24/22 Status at Discharge Cognitive/behavioral status at discharge: stable Time Spent with Patient Time attestation: Total time spent providing and/or coordinating discharge services: 34 minutes Time spent: Greater than 30 minutes Exam Narrative: AF 97.0 158/73 80 16 100% ra Gen - NARD Chest - CTA bilaterally, nml RR CV - RRR S1/S2 Abd - Soft, ND, NT. GTube site clean and dry. Ext - No pedal edema Neuro - Alert, more verbal today. Oriented to name, location and Ursula name. Psych - Nml mood and affect Skin - Warm and dry DS: Data Data Completed and Pending Labs on day of discharge: Labs from last 24 hours 10/24/22 10/24/22 10/23/22 07:32 05:51 20:42 WBC 11.1 H RBC 3.78 L Hgb 10.8 L Hct 34.0 L MCV 89.9 MCH 28.6 MCHC 31.8 L RDW 13.6 Plt Count 209 MPV 11.7 H Immature Gran % (Auto) 0.3 Neut % (Auto) 68.1 Lymph % (Auto) 23.8 [place] % (
[2022-10-24 11:25] LABS: Glucose Point of Care 171 mg/dl (65-105)
--- NOTE | 2022-10-24 13:03 | WPDGIPROGNO ---
Progress Note: A&P Assessment and Plan (1) Colitis: Code(s): K52.9 - Noninfective gastroenteritis and colitis, unspecified Status: Acute Assessment and Plan: abdominal exam benign she can discharge back to rehab place and complete treatment as outpatient (2) Rectal bleeding: Code(s): K62.5 - Hemorrhage of anus and rectum Status: Acute Assessment and Plan: h/h stable resolved (3) Leukocytosis: Code(s): D72.829 - Elevated white blood cell count, unspecified Status: Acute Assessment and Plan: trending down, 11k (4) CVA (cerebral vascular accident): Code(s): I63.9 - Cerebral infarction, unspecified Status: Acute Assessment and Plan: continue with outpatient therapy (5) Aphasia as late effect of cerebrovascular accident: Code(s): I69.320 - Aphasia following cerebral infarction Status: Acute Subjective Date/time seen: 10/24/22 13:03 Interval history: no more bleeding, she is doing well Review of Systems Review of Systems: All systems reviewed & are unremarkable except as noted in HPI and below Exam Const: General: comfortable HENMT: Face/Nose/Sinus: Normal nares present Eyes: Sclera: sclerae normal Neck: Neck: supple Resp: Effort & Inspection: normal respiratory effort Cardio: Rate: regular rate GI: Inspection: distended GI Palp: Yes Soft to palpation and No Guarding due to palpation present (GI) Auscultation: normal bowel sounds Skin: General skin exam: normal color Neuro: Other: aphasia, right hemiparesis Extrem: General: normal to inspection Psych: Other: unable to assess Objective Data Vital Signs Vital Signs: Vital Signs - 24 hr 10/23/22 14:00 10/23/22 20:56 10/23/22 22:52 Temperature 98.7 F 97.2 F L Pulse Rate 89 87 80 Respiratory Rate 18 12 Blood Pressure 132/75 134/75 Pulse Oximetry 98 99 Oxygen Delivery 10/23/22 20:00 10/24/22 05:13 10/24/22 08:52 Temperature 97 F L Pulse Rate 72 80 Respiratory Rate 16 Blood Pressure 158/73 H Pulse Oximetry 100 Oxygen Delivery Room Air Intake/Output Intake/Output: Intake & Output 10/21/22 10/22/22 10/23/22 10/24/22 23:59 23:59 23:59 23:59 Intake Total 150 1250 1310 440 Output Total 0 Balance 150 1250 1310 440 Meds/Results Medications: Active Medications Generic Name Dose Route Start Last Admin Trade Name Freq PRN Reason Stop Dose Admin Acetaminophen 650 mg 10/22/22 21:41 10/23/22 19:27 Acetaminophen 325 Mg Tablet PO 650 mg Q4H PRN Administration Pain Albuterol 2 puff 10/21/22 23:57 Albuterol Sulfate (*Sp) Aerosol 1 Puff INHALATION Q4H PRN sob Amlodipine Besylate 10 mg 10/23/22 09:00 10/24/22 08:53 Amlodipine Besylate 5 Mg Tablet PO 10 mg DAILY LUCIANA Administration Atorvastatin Calcium 80 mg 10/23/22 09:00 10/24/22 08:52 Atorvastatin 40 Mg Tablet PO 80 mg DAILY LUCIANA Administration Bisacodyl 10 mg 10/21/22 23:57 Bisacodyl 10 Mg Suppository RECTAL DAILY PRN Constipation Carvedilol 6.25 mg 10/23/22 09:00 10/24/22 08:52 Carvedilol 6.25 Mg Tablet PO 6.25 mg Q12HR LUCIANA Administration Clopidogrel Bisulfate 75 mg 10/23/22 09:00 10/24/22 08:52 Clopidogrel Bisulfate 75 Mg Tablet PO 75 mg DAILY LUCIANA Administration Dextrose 12.5 gm 10/21/22 23:59 Dextrose 50% 25 Gm/50 Ml Syringe IV PUSH PRN PRN Hypoglycemia Protocol Fluoxetine HCl 20 mg 10/23/22 09:00 10/24/22 08:52 Fluoxetine Hcl 20 Mg Capsule PO 20 mg DAILY LUCIANA Administration Furosemide 10 mg 10/23/22 09:00 10/24/22 08:53 Furosemide 10 Mg Tablet PO 10 mg DAILY LUCIANA Administration Glucagon 1 mg 10/21/22 23:59 Glucagon For Inj 1 Mg Vial IM PRN PRN Hypoglycemia Protocol Glucose 15 gm 10/21/22 23:59 Glucose Oral Gel 15 Gm Of Glucse In 37.5 Gm Tube PO PRN PRN Hypoglycem
[2022-10-24 13:47] VITALS: BP 138/75; PULSE 83; RESP 16; TEMP 36.3; O2SAT 99
[2022-10-24 16:00] LABS: EDCOVIDSCREEN Negative (Negative)
[2022-10-24 16:16] LABS: Glucose Point of Care 197 mg/dl (65-105)
--- NOTE | 2022-10-24 19:54 | PC.NURSE ---
Pt discharged to [facility]; report called to [place] [id number]. Pt taken by [facility] via stretcher with Gtube intact.
== END 2022-10-24 18:45 ==
LOC: ANHED 10:43 → ANH3MEDSUR 17:50
PROVIDERS: Internal Medicine Gastroenterology; Nurse Practitioner; Admitting Provider Hospitalist; Emergency Provider Emergency Medicine; PCP Internal Medicine; Visit Provider Internal Medicine
DX: K52.9 Noninfective gastroenteritis and colitis, unspecified (principal); N76.0 Acute vaginitis; B96.89 Other specified bacterial agents as the cause of diseases classified elsewhere; D64.9 Anemia, unspecified; K62.5 Hemorrhage of anus and rectum; E11.9 Type 2 diabetes mellitus without complications; Z20.822 Contact with and (suspected) exposure to COVID-19; I10 Essential (primary) hypertension; I69.320 Aphasia following cerebral infarction; I69.391 Dysphagia following cerebral infarction; I69.351 Hemiplegia and hemiparesis following cerebral infarction affecting right dominant side; F41.8 Other specified anxiety disorders; Z93.1 Gastrostomy status; D72.829 Elevated white blood cell count, unspecified; E83.52 Hypercalcemia; Z79.1 Long term (current) use of non-steroidal anti-inflammatories (NSAID); Z79.51 Long term (current) use of inhaled steroids; Z79.82 Long term (current) use of aspirin; Z79.02 Long term (current) use of antithrombotics/antiplatelets; Z79.899 Other long term (current) drug therapy
CPT/HCPCS: 36415; 74177; 80048; 80053; 81001; 81025; 82607; 82728; 82746; 82948; 83036; 83540; 83550; 83605; 83615; 83735; 84100; 84439; 84443; 84480; 85014; 85018; 85025; 85055; 85610; 85730; 87070; 87426; 87491; 87591; 87808; 92611; 96361; 96365; 96366; 96375; 96376; 99285; A9270; C9113; C9803; G0378; J0696; J1815; J7030; Q9967